=== PATIENT | female | born 1955 | race Caucasian/White ===

== ENCOUNTER 2022-02-26 13:18 | Emergency (ER) | payer OTHER ==
[2022-02-26 13:48] VITALS: BP 137/68; PULSE 102; RESP 18; TEMP 99.7; BMI 38.6
[2022-02-26] MEDS ORDERED: ACETAMINOPHEN 325 MG TABLET (FP) PO ONE (13:51)
[2022-02-26] MEDS ORDERED: ACETAMINOPHEN 325 MG TABLET (FP) ONE (13:55)
== END 2022-02-26 15:56 | disposition home or self-care (01) ==
LOC: FER 13:18
DX: S09.90XA Unspecified injury of head, initial encounter (principal); M25.562 Pain in left knee; W01.0XXA Fall on same level from slipping, tripping and stumbling without subsequent striking against object, initial encounter
CPT/HCPCS: 70450-TC; 73562-TC-LT-FY; 99284-25